=== PATIENT | female | born 1995 | race African-American/Black ===

== ENCOUNTER 2017-01-02 11:38 | Emergency (ER) | payer MEDICAID ==
[~2017-01-02] VITALS: Ht 167.6 cm; Wt 60.8 kg
--- NOTE | 2017-01-02 12:36 | Emergency Room Report ---
History of Present Illness General Chief Complaint: Eye Problems Source: Patient Present Illness HPI 21-year-old female presents emergency department complaining of swelling, 5/10 in severity pressure, and erythema to the left upper eyelid x2 days. Patient states symptoms have been progressive reported mild itching prior to onset. Patient denies scratching or foreign body sensation denies trauma to the eye denies eye pain, visual disturbances or changes. She denies fevers, chills, recent illness patient denies discharge other than increased lacrimation.denies photophobia, flashing lights, or loss of vision. Patient denies use of contact lenses. denies rash, abdominal pain, swelling or lips or tongue. Denies CP, Palpitations, LOC, AMS, dizziness, Changes in Vision, Sensation, paresthesias, or a sudden severe headache. Allergies: Coded Allergies: No Known Allergies (Unverified , 01/02/17) Patient History Past Medical History: see triage record Past Surgical History: none Last Menstrual Period: 3 weeks Now: No Immunizations: UTD Reviewed Nursing Documentation: PMH: Agreed, PSxH: Agreed Nursing Documentation-PMH Past Medical History: No Stated History Review of Systems All Other Systems: negative except mentioned in HPI Physical Exam Vital Signs Date Time Temp Pulse Resp B/P Pulse Ox O2 Delivery O2 Flow Rate FiO2 01/02/17 11:55 98.2 85 16 123/79 99 Room Air Sp02 EP Interpretation: reviewed, normal General Appearance: no apparent distress, alert, GCS 15, non-toxic Head: normocephalic, atraumatic Eyes: left eye other - left upperlid swelling, no evidence of crusting or purulent d/c no evidence of infestation, no increased temperature to palpation, no lesions noted. EMOI without pain. , bilateral eye EOMI, bilateral eye PERRL, bilateral eye normal inspection ENT: hearing grossly normal, normal pharynx, no angioedema, normal voice Neck: full range of motion, supple/symm/no masses Respiratory: lungs clear, normal breath sounds, speaking full sentences Cardiovascular #1: regular rate, rhythm, no edema Musculoskeletal: back normal, gait/station normal, normal range of motion, non- tender, no calf tenderness Neurologic: alert, oriented x3, responsive, motor strength/tone normal, sensory intact, speech normal Psychiatric: judgement/insight normal, memory normal, mood/affect normal Skin: normal color, no rash, warm/dry, well hydrated Lymphatic: no adenopathy Medical Decision Making PA Attestation Dr. ray is my supervising Physician whom patient management has been discussed with. Diagnostic Impression: Primary Impression: Allergic conjunctivitis of left eye Additional Impression: Superficial swelling of eyelid ER Course 21-year-old female presents emergency department complaining of swelling, 5/10 in severity pressure, and erythema to the left upper eyelid x2 days. Patient states symptoms have been progressive reported mild itching prior to onset. Patient denies scratching or foreign body sensation denies trauma to the eye denies eye pain, visual disturbances or changes. She denies fevers, chills, recent illness patient denies discharge other than increased lacrimation. Patient denies use of contact lenses. denies rash, abdominal pain, swelling or lips or tongue. Ddx considered but are not limited to: corneal abrasion, acute glaucoma, globe rupture, FB, Corneal Ulcer, conjunctivitis. Iridis, orbital cellulitis,keratitis , sinusitis Vital signs: are WNL, pt. is afebrile H&PE are most consistent with: allergic conjunctivitis, no evidence of orbital cellulitis. ORDERS: none at this time. ED INTERVENTIONS: none at this time. DISCHARGE: At this time pt. is stable for d/c to home. Will provide printed patient care instructions, and any necessary prescriptions. Care plan and follow up instructions have been discussed with the patient prior to discharge. Last Vital Signs Date Time Temp Pulse Resp B/P Pulse Ox O2 Delivery O2 Flow Rate FiO2 01/02/17 11:55 98.2 85 16 123/79 99 Room Air Disposition: HOME, SELF-CARE Condition: Stable Scripts Erythromycin Base (ERYTHROMYCIN*) 3.5 Gm Oint...g. 1 APPLIC LEFT EYE BID for 5 Days, #3.5 GM 0 Refills Prov: Denise Ortega P.A. 01/02/17 Cetirizine Hcl* (ZYRTEC*) 10 Mg Tablet 10 MG ORAL DAILY for 10 Days, #20 TAB 0 Refills Prov: Denise Ortega P.A. 01/02/17 Epinastine Hcl (EPINASTINE HCL) 5 Ml Drops 2 DROP OP BID for 7 Days, #5 ML Prov: Denise Ortega P.A. 6/14/17 Departure Forms: Return to School, Return to School On: Jan 05, 2017 School Release Restrictions: No Sports or PE Return to Full Activity: Jan 05, 2017 Return to Work Return to Work Date: Jan 05, 2017 Work Restrictions: None Return to Full Activity: Jan 05, 2017 Patient Instructions: Allergic Conjunctivitis, [id number] Additional Instructions: Take medications as directed. Follow up with PCP or counter tacker in 3 days Return sooner to ED if new symptoms occur, or current symptoms become worse. recommend lid washes and hot compresses regularly. - Please note that this Emergency Department Report was dictated using [employer] application developer technology software, occasionally this can lead to erroneous entry secondary to interpretation by the dictation equipment. Denise Ortega Jan 02, 2017 12:36
[2017-01-02] MEDS ORDERED: ERYTHROMYCIN3.5 GM LEFT EYE (12:38)
[2017-01-02] MEDS ORDERED: ZYRTEC10 MG ORAL (12:38)
[2017-01-02] MEDS ORDERED: EPINASTINE HCL5 ML OP (12:38)
[2017-01-02 12:40] VITALS: BP 123/79
[2017-01-02 12:43] VITALS: BP 123/79
== END 2017-01-02 12:51 | disposition home or self-care (01) ==
LOC: EMR 12:43
DX: H10.12 Acute atopic conjunctivitis, left eye (principal); H01.9 Unspecified inflammation of eyelid
CPT/HCPCS: 99284